=== PATIENT | female | born 1975 | race African-American/Black ===

== ENCOUNTER → 2016-12-28 | Outpatient (CLI) | payer OTHER ==
[~2016-12-28] MED LIST: BARIUM SULFATE 340 GM SUSPENSION. PO ONE; BARIUM SULFATE 60% 355 ML SUSP PO ONE; SIMETHICONE/SOD BICARB/CITRIC ACID PACKET. PO ONE
--- NOTE | 2016-12-28 13:13 | RAD ---
Abdominal ultrasound, 12/28/2016: History: Right upper quadrant pain The gallbladder is not optimally distended. There is no sonographic evidence of cholelithiasis. The gallbladder delgado are not thickened. No bile duct dilatation is seen. There is no evidence of a hepatic mass. The visualized portions of the pancreas, spleen and both kidneys are unremarkable. The aorta is nondilated. The inferior vena cava shows no abnormality. No free fluid is evident in the abdomen. IMPRESSION: No significant abnormality is detected.
--- NOTE | 2016-12-28 13:16 | RAD ---
Esophagram, 12/28/2016: History: Difficulty swallowing The study was performed utilizing thin liquid barium. 2.5 minutes of fluoroscopy time was utilized. 7 static and dynamic fluoroscopic sequences were recorded. There are mild posterior impressions upon the lower cervical esophagus due to mild anterior spurs. There is no obstruction to flow of the barium through the cervical esophagus. The esophageal peristalsis is normal. No obstructive process is seen in the thoracic esophagus. No hiatal hernia was evident. Minimal spontaneous gastroesophageal reflux was noted in the supine position. IMPRESSION: 1. Minimal spontaneous gastroesophageal reflux. 2. The esophagram is otherwise unremarkable.
== END | disposition home or self-care (01) ==
LOC: US 09:24
PROVIDERS: ATTEND Family Medicine
DX: R10.11 Right upper quadrant pain (principal); R13.10 Dysphagia, unspecified
CPT/HCPCS: 74220; 76700

== ENCOUNTER → 2017-09-19 | Outpatient (CLI) | payer OTHER | END | disposition home or self-care (01) | LOC: KCIC US 08:05 | DX: D25.9 Leiomyoma of uterus, unspecified (principal); N92.0 Excessive and frequent menstruation with regular cycle | CPT/HCPCS: 76830; 76856 ==

== ENCOUNTER 2017-10-17 06:10 | Observation (INO) | payer OTHER ==
[~2017-10-17 06:10] MED LIST changes: -BARIUM SULFATE 340 GM SUSPENSION. PO ONE; -BARIUM SULFATE 60% 355 ML SUSP PO ONE; +ESTROGENS, CONJ VAGINAL CREAM 30GM TUBE.; +LIDOCAINE 1%/EPI 1:100,000 20 ML VIAL.; +METHYLENE BLUE 1% 10 ML VIAL.; -SIMETHICONE/SOD BICARB/CITRIC ACID PACKET. PO ONE; +SURGICEL HEMOSTAT 4X8 EACH.
[2017-10-17] MEDS: IV RINGERS,LACTATED 1000ML 1,000 ML IV (06:45)
[2017-10-17 06:51] LABS: ADD MAN DIFF? NO
[2017-10-17 06:54] LABS: NEG OBC UR NEG; POS OBC UR POS; U PREG PATIENT NEGATIVE (NEG)
[2017-10-17 06:56] LABS: BASO # 0.1 x10^3/uL (0.0-0.2); BASO % 1 % (0-3); EOS % 1 % (0-3); HEMATOCRIT 29.2 % (36.0-47.0); HEMOGLOBIN 9.1 g/dL (12.0-15.5); LYMPH # 0.9 x10^3/uL (1.0-4.8); LYMPH % 21 % (24-48); MEAN CORPUSCULAR HEMOGLOBIN 23 pg (25-35); MEAN CORPUSCULAR HGB CONC 31 g/dL (31-37); MEAN CORPUSCULAR VOLUME 74 fL (79-100); MONO # 0.4 x10^3/uL (0.0-1.1); MONO % 8 % (0-9); NEUT % 68 % (31-73); PLATELET COUNT 276 x10^3/uL (140-400); RED BLOOD COUNT 3.92 x10^6/uL (3.50-5.40); RED CELL DISTRIBUTION WIDTH 16.8 % (11.5-14.5); WHITE BLOOD COUNT 4.3 x10^3/uL (4.0-11.0)
[2017-10-17] MEDS ORDERED: LIDOCAINE 1% PF 2 ML VIAL. ID (07:00)
[2017-10-17] MEDS ORDERED: ceFAZolin 2GM PREMIX 2 GM/50 ML BAG IV (07:00)
[2017-10-17] MEDS ORDERED: MORPHINE SULFATE 4 MG/ML DISP.SYRIN. IV (07:00)
[2017-10-17] MEDS ORDERED: ONDANSETRON PF 4 MG/2 ML VIAL. IV ×2 (07:00→10:15)
[2017-10-17] MEDS ORDERED: HYDROmorphone 2 MG/ML VIAL IV (07:00)
[2017-10-17] MEDS ORDERED: fentaNYL PF VIAL 100 MCG/2 ML VIAL IV (07:00)
[2017-10-17] MEDS ORDERED: MIDAZOLAM HCL/PF 2 MG/2 ML VIAL. (07:33)
[2017-10-17] MEDS ORDERED: NEOSTIGMINE 10 MG/10 ML VIAL. (07:33)
[2017-10-17] MEDS ORDERED: ROCURONIUM 100 MG/10 ML VIAL. (07:34)
[2017-10-17] MEDS ORDERED: FAMOTIDINE 20 MG/2 ML VIAL (07:34)
[2017-10-17] MEDS ORDERED: GLYCOPYRROLATE 1 MG/5 ML VIAL. (07:34)
[2017-10-17] MEDS ORDERED: fentaNYL PF VIAL 100 MCG/2 ML VIAL (07:34)
[2017-10-17] MEDS ORDERED: ONDANSETRON PF 4 MG/2 ML VIAL. (07:34)
[2017-10-17] MEDS ORDERED: DEXAMETHASONE SOD PHOS 20 MG/5 ML VIAL. (07:34)
[2017-10-17] MEDS ORDERED: PROPOFOL 20 ML IV ×2 (07:34→08:08)
[2017-10-17] MEDS ORDERED: KETAMINE HCL 500 MG/10 ML VIAL. (07:34)
[2017-10-17] MEDS: BUPIVACAINE-EPI 0.25%-1:200000 50 ML VIAL. (09:13)
[2017-10-17] MEDS ORDERED: SEVOFLURANE > 120 MINUTES. IH (09:57)
[2017-10-17] MEDS ORDERED: PROCHLORPERAZINE 10 MG/2 ML VIAL. IV (10:15)
[2017-10-17] MEDS ORDERED: DEXTROSE 50% 25 GM / 50ML DISP.SYRIN. IV (10:15)
[2017-10-17] MEDS ORDERED: diphenhydrAMINE 50 MG/ML VIAL IV (10:15)
[2017-10-17] MEDS ORDERED: CALCIUM CARBONATE 500 MG TAB.CHEW PO (10:15)
[2017-10-17] MEDS ORDERED: diphenhydrAMINE HCL 25 MG CAPSULE PO (10:15)
[2017-10-17] MEDS: fentaNYL PF VIAL 100 MCG/2 ML VIAL IV ×2 (10:39→10:45)
[2017-10-17] MEDS: PROCHLORPERAZINE 10 MG/2 ML VIAL. IV (11:23)
[2017-10-17] MEDS: KETOROLAC 30 MG/ML INJ. IV ×2 (13:00→19:54)
[2017-10-17] MEDS: GABAPENTIN 300 MG CAPSULE. PO ×2 (14:28→21:36)
[2017-10-17] MEDS: 0.9 % SODIUM CHLORIDE 10 ML DISP.SYRIN. IV (19:54)
[2017-10-17] MEDS: ZOLPIDEM 5 MG TABLET. PO (21:36)
[2017-10-18] MEDS: oxyCODONE/APAP 5/325 1 TAB TABLET PO ×3 (01:13→13:52)
[2017-10-18 05:09] LABS: ADD MAN DIFF? NO
[2017-10-18 05:38] LABS: BASO % 0 % (0-3); EOS % 0 % (0-3); HEMATOCRIT 27.8 % (36.0-47.0); HEMOGLOBIN 8.5 g/dL (12.0-15.5); LYMPH # 1.7 x10^3/uL (1.0-4.8); LYMPH % 15 % (24-48); MEAN CORPUSCULAR HEMOGLOBIN 23 pg (25-35); MEAN CORPUSCULAR HGB CONC 31 g/dL (31-37); MEAN CORPUSCULAR VOLUME 75 fL (79-100); MONO # 0.9 x10^3/uL (0.0-1.1); MONO % 8 % (0-9); NEUT % 77 % (31-73); PLATELET COUNT 279 x10^3/uL (140-400); RED BLOOD COUNT 3.73 x10^6/uL (3.50-5.40); RED CELL DISTRIBUTION WIDTH 16.6 % (11.5-14.5); WHITE BLOOD COUNT 11.6 x10^3/uL (4.0-11.0)
[2017-10-18] MEDS: KETOROLAC 30 MG/ML INJ. IV (05:47)
[2017-10-18] MEDS: GABAPENTIN 300 MG CAPSULE. PO ×2 (05:48→12:15)
[2017-10-18] MEDS: 0.9 % SODIUM CHLORIDE 10 ML DISP.SYRIN. IV (05:48)
[2017-10-18 07:34] LABS: ANISOCYTOSIS SLIGHT; HYPOCHROMIA MOD; MICROCYTOSIS PRESENT; OVALOCYTES PRESENT; PLT ESTIMATE ADEQUATE (ADEQUATE); POIKILOCYTOSIS PRESENT; POLYCHROMASIA PRESENT; SCHISTOCYTES OCC
[2017-10-18] MEDS: SIMETHICONE 80 MG TAB.CHEW PO ×2 (08:22→12:15)
== END 2017-10-18 15:51 | disposition home or self-care (01) ==
LOC: SURG 06:10 → 3 NORTH 10:05
DX: N83.291 Other ovarian cyst, right side (principal); N92.0 Excessive and frequent menstruation with regular cycle; D25.9 Leiomyoma of uterus, unspecified; K66.0 Peritoneal adhesions (postprocedural) (postinfection)
CPT/HCPCS: 36415; 81025; 85025; 86850; 86900; 86901; 88307; 96374; 96376; G0378; G0379; J0690; J0780; J1100; J1885; J2250; J2405; J2704; J2710; J3010; J3490; Q9968; S0028

== ENCOUNTER → 2021-02-23 | Outpatient (CLI) | payer OTHER ==
[2017-10-18 15:09] VITALS: BP 106/54
[~2021-02-23] MED LIST changes: +CHOL100013 PO; +DOCU-109 PO; +ESCITALOPRAM OX10 MG PO; -ESTROGENS, CONJ VAGINAL CREAM 30GM TUBE.; +HYDR-2145 PO; +IBUP-1060 PO; -LIDOCAINE 1%/EPI 1:100,000 20 ML VIAL.; -METHYLENE BLUE 1% 10 ML VIAL.; +OXYC1TAB7 PO; +PANT20TA2 PO; +PROP40TA PO; +RIZA10TA PO; -SURGICEL HEMOSTAT 4X8 EACH.
--- NOTE | 2021-02-23 13:32 | KCIC ---
EXAM: MRI right shoulder DATE: 02/23/2021 11:00 AM COMPARISON: None INDICATION: Reason: RIGHT SHOULDER PAIN / Spl. Instructions: Prior surgery in 2010. / History: Right shoulder pain and LROM after a fall last November. TECHNIQUE: Multiplanar, multisequence MRI of the right shoulder was performed without contrast. FINDINGS: AC joint degenerative changes are seen. Mild lateral downsloping of the distal acromion. Type III acr omion. Subacromial subdeltoid bursal edema likely bursitis. Mild increased signal within the distal supraspinatus and infraspinatus tendon, tendinosis. No discre te rotator cuff tear. Rotator cuff muscle signal and bulk is normal without fatty atrophy. Long head biceps tendon intact. No discrete labral tear is seen. No fracture or osteonecrosis. Articular cartilage is grossly preserved. IMPRESSION: 1. No discrete rotator cuff tear is seen. Supraspinatus and infraspinatus tendinosis. 2. Subacromial-subdeltoid bursal fluid likely bursitis. 3. AC joint degenerative changes are seen. Electronically signed by: Lebron Pete MD (02/23/2021 1:30 PM) EV
== END ==
LOC: KCIC MRI 10:45
PROVIDERS: ATTEND Family Medicine
DX: M19.011 Primary osteoarthritis, right shoulder (principal); M75.81 Other shoulder lesions, right shoulder; M25.511 Pain in right shoulder; Z98.890 Other specified postprocedural states; Z91.81 History of falling
CPT/HCPCS: 73221